=== PATIENT | male | born 1975 | race Caucasian/White ===

== ENCOUNTER → 2016-04-30 | Emergency (ER) | payer MEDICARE ==
[~2016-04-30] VITALS: Ht 170.2 cm; Wt 115.7 kg
[~2016-04-30] MED LIST: GABA-279 PO; LITH300C PO; MELO15TA4 PO; MORP-38 PO; MORP15TASA PO; NS 1,000 ML IV ONE; PANT40TA2 PO; TOPA100T8 PO; no home medications
[2016-04-30 23:47] LABS: BASO % 0.6 % (0.0-1.0); EOS # 0.2 K/mm3 (0.0-0.50); LARGE UNSTAINED CELL # 0.2 K/mm3 (0.0-0.4); LYMPH # 2.4 K/mm3 (1.5-4.5); LYMPH % 26.6 % (24.0-44.0); MEAN CORPUSCULAR HGB CONC 33.7 g/dl (32.0-36.5); MEAN CORPUSCULAR VOLUME 89.2 fl (80.0-96.0); MONO # 0.5 K/mm3 (0.0-0.8); NEUTROPHILS # 5.2 K/mm3 (1.8-7.7); NEUTROPHILS % 62.8 % (36.0-66.0); PLATELET COUNT, AUTOMATED 199 k/mm3 (150-450); RED CELL DISTRIBUTION WIDTH 12.4 % (11.5-14.5); WHITE BLOOD COUNT 8.3 K/mm3 (4.0-10.0)
[2016-05-01 00:30] VITALS: BP 134/69
[2016-05-01 00:41] LABS: ALBUMIN/GLOBULIN RATIO 1.25 (1.00-1.93); ALKALINE PHOSPHATASE 104 U/L (45-117); ALT/SGPT 51 U/L (12-78); ANION GAP 11 MEQ/L (8-16); AST/SGOT 32 U/L (15-37); BILIRUBIN,DIRECT 0.2 MG/DL (0.0-0.2); BILIRUBIN,TOTAL 0.7 MG/DL (0.2-1.0); BLOOD UREA NITROGEN 15 MG/DL (7-18); CALCIUM LEVEL 8.8 MG/DL (8.5-10.1); CARBON DIOXIDE LEVEL 24 MEQ/L (21-32); CHLORIDE LEVEL 105 MEQ/L (98-107); CREATININE FOR GFR 0.88 MG/DL (0.70-1.30); GLOMERULAR FILTRATION RATE > 60.0 (>60); GLUCOSE, FASTING 99 MG/DL (70-105); POTASSIUM SERUM 3.6 MEQ/L (3.5-5.1); SODIUM LEVEL 140 MEQ/L (136-145); TOTAL PROTEIN 7.2 GM/DL (6.4-8.2)
--- NOTE | 2016-05-01 20:26 | ECGEPIP ---
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
== END | disposition home or self-care (01) ==
LOC: M ED 23:51
DX: F32.9 Major depressive disorder, single episode, unspecified (principal); M54.9 Dorsalgia, unspecified; M79.606 Pain in leg, unspecified; F17.200 Nicotine dependence, unspecified, uncomplicated; Z79.899 Other long term (current) drug therapy; Z79.891 Long term (current) use of opiate analgesic; Z88.8 Allergy status to other drugs, medicaments and biological substances; Z91.5 Personal history of self-harm

== ENCOUNTER 2016-05-02 00:33 | Inpatient (IN) | payer MEDICARE ==
[~2016-05-02] VITALS: Ht 170.2 cm; Wt 114.8 kg
[2016-05-02] VITALS (10 sets, daily range): BP systolic 108–174; BP diastolic 52–74
[~2016-05-02 00:33] MED LIST changes: -GABA-279 PO; -MORP15TASA PO; -NS 1,000 ML IV ONE; -PANT40TA2 PO
[2016-05-02] MEDS ORDERED: NALOXONE INJ 2 MG/2 ML SYRINGE (J2310) As Ordered ONE (00:41)
[2016-05-02] MEDS ORDERED: NALOXONE INJ 2 MG/2 ML SYRINGE (J2310) IV ONE (00:45)
[2016-05-02] MEDS ORDERED: ONDANSETRON 4MG/2ML VIAL (J2405) IV ONE (01:00)
[2016-05-02 01:26] LABS: BASO % 0.6 % (0.0-1.0); EOS # 0.1 K/mm3 (0.0-0.50); EOS % 1.4 % (0.0-3.0); LARGE UNSTAINED CELL # 0.4 K/mm3 (0.0-0.4); LARGE UNSTAINED CELL % 4.3 % (0.0-4.0); LYMPH # 2.9 K/mm3 (1.5-4.5); MEAN CORPUSCULAR HEMOGLOBIN 29.8 pg (27.0-33.0); MEAN CORPUSCULAR HGB CONC 34.4 g/dl (32.0-36.5); MEAN CORPUSCULAR VOLUME 86.7 fl (80.0-96.0); MONO # 0.5 K/mm3 (0.0-0.8); MONO % 6.2 % (0.0-5.0); NEUTROPHILS # 4.8 K/mm3 (1.8-7.7); NEUTROPHILS % 54.6 % (36.0-66.0); PLATELET COUNT, AUTOMATED 215 k/mm3 (150-450); RED CELL DISTRIBUTION WIDTH 12.1 % (11.5-14.5); WHITE BLOOD COUNT 8.8 K/mm3 (4.0-10.0)
[2016-05-02 01:35] LABS: ALBUMIN 3.7 GM/DL (3.2-5.2); ALBUMIN/GLOBULIN RATIO 1.37 (1.00-1.93); ALKALINE PHOSPHATASE 98 U/L (45-117); ALT/SGPT 48 U/L (12-78); ANION GAP 12 MEQ/L (8-16); AST/SGOT 25 U/L (15-37); BILIRUBIN,DIRECT 0.2 MG/DL (0.0-0.2); BILIRUBIN,TOTAL 0.6 MG/DL (0.2-1.0); BLOOD UREA NITROGEN 19 MG/DL (7-18); CARBON DIOXIDE LEVEL 25 MEQ/L (21-32); CHLORIDE LEVEL 105 MEQ/L (98-107); CREATININE FOR GFR 0.99 MG/DL (0.70-1.30); GLOMERULAR FILTRATION RATE > 60.0 (>60); GLUCOSE, FASTING 168 MG/DL (70-105); POTASSIUM SERUM 3.8 MEQ/L (3.5-5.1); SODIUM LEVEL 142 MEQ/L (136-145); TOTAL PROTEIN 6.4 GM/DL (6.4-8.2)
[2016-05-02 01:41] LABS: LITHIUM LEVEL 0.23 MEQ/L (0.60-1.20)
[2016-05-02] MEDS ORDERED: ACETYLCYSTEINE 0 MG in D5W 500 ML IV ONE (02:00)
[2016-05-02] MEDS ORDERED: ACETYLCYSTEINE 0 MG in D5W 250 ML IV ONE (02:00)
[2016-05-02] MEDS ORDERED: NS 1,000 ML IV ONE (02:00)
[2016-05-02] MEDS ORDERED: D5W IV ONE ×3 (02:15→07:45)
[2016-05-02] MEDS ORDERED: ACETYLCYSTEINE IV ONE ×3 (02:15→07:45)
[2016-05-02] MEDS ORDERED: TETANUS/DIPHTHERIA TOX ADSORB ADULT 0.5ML SYR/VIAL (90714) IM ONE (02:45)
[2016-05-02] MEDS ORDERED: LIDOCAINE W/EPINEPHRINE 1% 20ML VIAL As Ordered ONE (03:14)
[2016-05-02] MEDS ORDERED: POLYSPORIN TOPICAL OINTMENT 15GM As Ordered ONE (03:23)
--- NOTE | 2016-05-02 03:26 | ED PDOC ---
Provider Note 6 cm lac repair, superficial. L forearm Irrigated by tech. 2 ml lido with epi injected. 11 giacomo placed. Patient tolerated procedure well SVEN CARDENAS MD May 02, 2016 03:26
--- NOTE | 2016-05-02 03:47 | HPEPDOC ---
General Date of Admission 05/02/2016 Attending Physician: ALEXA MENDOZA MD Chief Complaint The patient is a 40-year-old male admitted with a reason for visit of Overdose. Source: Patient, RN notes reviewed, Old records Exam Limitations: Clinical conditions Timing/Duration: 24 hours Severity: Moderate Associated Symptoms: Chest Pain (sharp), Headaches, Nausea History of Present Illness Mr. Ro is a 40-year-old male who presents to [facility]'s emergency Department with Tylenol overdose. Past medical history is significant for bipolar disorder, chronic back pain, chronic leg pain. Patient informs me that he took too much Tylenol secondary to not being able to "see his girls". Patient complains of a headache and he secondary to Tylenol overdose as well as some sharp chest pain that he says feels like "he was hit with something". Patient is alert and oriented 3. Patient does complain of nausea without vomiting. Also complains of orthopnea. A subcutaneous laceration approximately 4-5 inches in length noted on the right forearm with surrounding minor lacerations is present. Otherwise review of systems is negative. Patient was found obtunded in the field and was given Narcan. Patient somewhat improved after administration of Narcan indicating possible opioid intoxication. Hospitalist was consulted and patient will be admitted to the hospital for further medical management. Home Medications Scheduled [place] Carbonate (K[place] Carbonate) 300 Mg Cap 300 MG PO BID (Reported) Meloxicam (Meloxicam) 15 Mg Tab 15 MG PO DAILY (Reported) Morphine Sulfate (Morphine Sulfate ER) 15 Mg Tab 15 MG PO TID (Reported) Allergies Coded Allergies: Meperidine (Verified Allergy, Unknown, 05/27/12) Topiramate (Unverified Adverse Reaction, Intermediate, SHAKY, 05/02/16) Past Medical History Medical History 1. Bipolar disorder 2. Chronic back pain 3. Chronic leg pain Family History Significant Family History: Cancer (mother, lung cancer) Social History * Smoker: current smoker (1 PPD for approximately 25 years) Drugs: denies Recent Travel/Sick Contacts: Denies: Recent sick contacts, Recent travel Psychosocial History: Bipolar Lives independently with daughter Receives SSD Has a dog in the home Denies travel Review of Symptoms Constitutional: Denies: Chills, Fever, Night Sweats Eyes: Denies: Vision change ENT: Reports: Head Aches, Denies: Sore Throat Skin: Denies: Lesions, Rash Pulmonary: Denies: Cough Cardiovascular: Reports: Chest Pain, Orthopnea, Denies: Edema, Palpitations Gastrointestinal: Reports: Nausea, Denies: Abdominal Pain, Constipation, Diarrhea, Hematochezia, Melena, Vomiting Genitourinary: Denies: Dysuria, Frequency, Hematuria, Incontinence Hematologic: Denies: Bruising Musculoskeletal: Reports: Back Pain, Leg Pain Neurological: Denies: Numbness, Weakness Physical Examination General Exam: Positive: Cooperative, Other (sleeply, but arousable by voice) Eye Exam: Positive: Conjunctiva & lids normal, EOMI, Other Eye Symptoms (mild scleral injection, bilaterally), PERRLA ENT Exam: Positive: Atraumatic, Mucous membr. moist/pink, Tongue Midline Neck Exam: Positive: Supple, Negative: JVD, Lymphadenopathy, thyromegaly Chest Exam: Positive: Clear to auscultation, Normal air movement Heart Exam: Positive: Rate Normal, Regular Rhythm Telemetry: Positive: No significant arrhythmia Abdomen Exam: Positive: Normal bowel sounds, Soft, Negative: Hepatospenomegaly, Tenderness Extremity Exam: Positive: Normal pulses, Other (laceration approximately 45 inches in length on right forearm with minor lacerations present), Negative: Clubbing, Cyanosis Skin Exam: Positive: Lesion, Negative: Rash Neuro Exam: Negative: Strength at 5/5 X4 ext (4/5 muscle strength in lower extremities bilaterally) Psych Exam: Positive: Oriented x 3 Vital Signs T 98.3 HR 81 RR 18 BP 159/78 O2 97% on room air Height (in): 67 Weight (kg): 117.027 BMI (kg): 40.4 Laboratory Data Labs 24H Laboratory Tests 2 05/02/16 00:56: Acetaminophen Level 268.3H, Aspartate Amino Transf (AST/SGOT) 25, Alanine Aminotransferase (ALT/SGPT) 48, Alkaline Phosphatase 98, Total Bilirubin 0.6, Direct Bilirubin 0.2, Albumin 3.7, Albumin/Globulin Ratio 1.37, Anion Gap 12, White Blood Count 8.8, Red Blood Count 4.86, Hemoglobin 14.5, Hematocrit 42.2, Mean Corpuscular Volume 86.7, Mean Corpuscular Hemoglobin 29.8, Mean Corpuscular Hemoglobin Concent 34.4, Red Cell Distribution Width 12.1, Platelet Count 215, Neutrophils (%) (Auto) 54.6, Lymphocytes (%) (Auto) 33.0, Monocytes ( %) (Auto) 6.2H, Eosinophils (%) (Auto) 1.4, Basophils (%) (Auto) 0.6, Neutrophils # (Auto) 4.8, Lymphocytes # (Auto) 2.9, Monocytes # (Auto) 0.5, Eosinophils # (Auto) 0.1, Basophils # (Auto) 0.0, Calcium Level 8.0L, Ethyl Alcohol Level < 0.003, Glomerular Filtration Rate > 60.0, Large Unclassified Cells # 0.4, Large Unclassified Cells % 4.3H, [place] Level 0.23L, Salicylates Level 5.0, Thyroid Stimulating Hormone (TSH) 1.060, Total Creatine Kinase 254, Total Protein 6.4 05/02/16 01:45: Bedside Glucose (Misc Panel) 198H CBC/BMP Laboratory Tests 05/02/16 00:56 Red Blood Count 4.86, Mean Corpuscular Volume 86.7, Mean Corpuscular Hemoglobin 29.8, Mean Corpuscular Hemoglobin Concent 34.4, Red Cell Distribution Width 12.1 , Neutrophils (%) (Auto) 54.6, Lymphocytes (%) (Auto) 33.0, Monocytes (%) (Auto ) 6.2 H, Eosinophils (%) (Auto) 1.4, Basophils (%) (Auto) 0.6, Neutrophils # ( Auto) 4.8, Lymphocytes # (Auto) 2.9, Monocytes # (Auto) 0.5, Eosinophils # (Auto ) 0.1, Basophils # (Auto) 0.0 Assessment/Plan 40-year-old male who presents with Tylenol overdose. Problems (1) Tylenol overdose Status: Acute Problem Text: Place a one-to-one sitter secondary to patient's suicidal ideation and attempt Discussed patient's case with poison control and and following their recommendations which are outlined below - 2 hours before (2137) completion of 16 hour Mucomyst administration obtain a Tylenol level, coags, and LFTs - Obtain lithium level at 6 AM and if elevated continue with serial lithium levels every 4-6 hours Will make patient nothing by mouth at this time until patient returns to baseline and there is no longer a concern for aspiration Will make patient bedrest with commode privileges until return to baseline (2) Self-inflicted injury Status: Acute Problem Text: Approximately 4-6 inch subcutaneous laceration sustained to right forearm proximal to antecubital region with surrounding superficial lacerations Repaired in emergency department with giacomo Tetanus vaccination administered in emergency department Monitor with daily labs and vital signs Clinically monitor for signs of infection, including but not limited to erythema , edema, necrosis (3) Chronic back pain Status: Chronic Problem Text: Have continued patient's home medication of meloxicam Will hold patient's morphine at this time as patient was found obtunded in the field and was subsequently given Narcan to which patient responded, so likely an underlying opioid intoxication Plan / VTE VTE Prophylaxis Ordered?: Yes (TEDs and sequentials) Plan Plan Tylenol overdose - Discussed with poison control and I am following their recommendations laid out as follows: [place] level at 6 AM and if elevated to continue with serial lithium levels every 4-6 hours, 2 hours before (9:38 PM) step 3 of IV acetylcysteine (16 hour) administration obtain a Tylenol level, coags, and LFTs - Place a one-to-one sitter for suicidal ideation Chronic pain - Due to patient's response to Narcan there is likely a component of opioid intoxication and for this reason patient's morphine will be held - Will continue patient's meloxicam DVT prophylaxis - Place TEDs and sequentials Disposition Admit to PCU Activity: Continue Current Diagnostics: Check Labs, Repeat Labs in AM Anticipated Discharge: Home JOSEPHINE MONDRAGON May 02, 2016 03:33
[2016-05-02 07:23] LABS: ALBUMIN 3.2 GM/DL (3.2-5.2); ALBUMIN/GLOBULIN RATIO 1.23 (1.00-1.93); ALKALINE PHOSPHATASE 81 U/L (45-117); ALT/SGPT 60 U/L (12-78); ANION GAP 14 MEQ/L (8-16); AST/SGOT 37 U/L (15-37); BILIRUBIN,TOTAL 0.8 MG/DL (0.2-1.0); BLOOD UREA NITROGEN 17 MG/DL (7-18); CALCIUM LEVEL 7.8 MG/DL (8.5-10.1); CARBON DIOXIDE LEVEL 24 MEQ/L (21-32); CHLORIDE LEVEL 105 MEQ/L (98-107); CREATININE FOR GFR 0.88 MG/DL (0.70-1.30); GLOMERULAR FILTRATION RATE > 60.0 (>60); GLUCOSE, FASTING 159 MG/DL (70-105); POTASSIUM SERUM 3.4 MEQ/L (3.5-5.1); SODIUM LEVEL 143 MEQ/L (136-145); TOTAL PROTEIN 5.8 GM/DL (6.4-8.2)
[2016-05-02 07:28] LABS: LITHIUM LEVEL < 0.20 MEQ/L (0.60-1.20)
[2016-05-02] MEDS ORDERED: METOCLOPRAMIDE INJ 10MG/2ML VIAL (J2765) IV PRN (08:11)
[2016-05-02] MEDS ORDERED: NALOXONE INJ 0.4 MG/1 ML VIAL (J2310) IV PRN ×2 (08:11)
[2016-05-02] MEDS ORDERED: NALBUPHINE HCL 10 MG/ML AMP (J2300) IV PRN (08:11)
[2016-05-02] MEDS ORDERED: ONDANSETRON 4MG/2ML VIAL (J2405) IV PRN (08:11)
[2016-05-02] MEDS: ONDANSETRON 4MG/2ML VIAL (J2405) IV PRN ×2 (08:11→20:57)
[2016-05-02] MEDS ORDERED: MELOXICAM (MOBIC) 7.5 MG TAB PO SCH (09:00)
[2016-05-02] MEDS: GABAPENTIN 100 MG CAP PO SCH ×3 (09:54→20:04)
[2016-05-02] MEDS: LIDOCAINE 5% (LIDODERM) PATCH TD SCH (09:54)
[2016-05-02] MEDS: PANTOPRAZOLE 40MG TAB (PROTONIX) PO SCH (16:39)
[2016-05-02] MEDS ORDERED: **NOTE PATIENT COMMENT** MISC XX SCH (21:00)
[2016-05-02 22:06] LABS: ALBUMIN 3.2 GM/DL (3.2-5.2); ALBUMIN/GLOBULIN RATIO 1.28 (1.00-1.93); ALKALINE PHOSPHATASE 85 U/L (45-117); ALT/SGPT 69 U/L (12-78); ANION GAP 10 MEQ/L (8-16); AST/SGOT 32 U/L (15-37); BILIRUBIN,TOTAL 0.5 MG/DL (0.2-1.0); BLOOD UREA NITROGEN 14 MG/DL (7-18); CALCIUM LEVEL 7.8 MG/DL (8.5-10.1); CARBON DIOXIDE LEVEL 24 MEQ/L (21-32); CHLORIDE LEVEL 106 MEQ/L (98-107); CREATININE FOR GFR 0.82 MG/DL (0.70-1.30); GLOMERULAR FILTRATION RATE > 60.0 (>60); GLUCOSE, FASTING 111 MG/DL (70-105); POTASSIUM SERUM 3.4 MEQ/L (3.5-5.1); SODIUM LEVEL 140 MEQ/L (136-145); TOTAL PROTEIN 5.7 GM/DL (6.4-8.2)
[2016-05-02 22:29] LABS: INR 1.27
[2016-05-03] VITALS (7 sets, daily range): BP systolic 118–145; BP diastolic 59–82
[2016-05-03] MEDS ORDERED: D5W IV ONE (01:30)
[2016-05-03] MEDS ORDERED: ACETYLCYSTEINE IV ONE (01:30)
[2016-05-03 05:13] LABS: MEAN CORPUSCULAR HEMOGLOBIN 29.4 pg (27.0-33.0); MEAN CORPUSCULAR HGB CONC 33.8 g/dl (32.0-36.5); MEAN CORPUSCULAR VOLUME 87.2 fl (80.0-96.0); RED CELL DISTRIBUTION WIDTH 12.4 % (11.5-14.5); WHITE BLOOD COUNT 9.1 K/mm3 (4.0-10.0)
[2016-05-03 05:43] LABS: ALBUMIN/GLOBULIN RATIO 1.03 (1.00-1.93); ALKALINE PHOSPHATASE 86 U/L (45-117); ALT/SGPT 71 U/L (12-78); ANION GAP 10 MEQ/L (8-16); AST/SGOT 30 U/L (15-37); BILIRUBIN,TOTAL 0.6 MG/DL (0.2-1.0); BLOOD UREA NITROGEN 13 MG/DL (7-18); CALCIUM LEVEL 7.9 MG/DL (8.5-10.1); CARBON DIOXIDE LEVEL 24 MEQ/L (21-32); CHLORIDE LEVEL 107 MEQ/L (98-107); CREATININE FOR GFR 0.78 MG/DL (0.70-1.30); GLOMERULAR FILTRATION RATE > 60.0 (>60); GLUCOSE, FASTING 107 MG/DL (70-105); POTASSIUM SERUM 3.5 MEQ/L (3.5-5.1); SODIUM LEVEL 141 MEQ/L (136-145); TOTAL PROTEIN 5.9 GM/DL (6.4-8.2)
[2016-05-03] MEDS: GABAPENTIN 100 MG CAP PO SCH (08:33)
[2016-05-03] MEDS: LIDOCAINE 5% (LIDODERM) PATCH TD SCH (08:33)
[2016-05-03] MEDS: PANTOPRAZOLE 40MG TAB (PROTONIX) PO SCH (08:33)
--- NOTE | 2016-05-03 08:57 | ECGEPIP ---
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
[2016-05-03] MEDS ORDERED: MORPHINE 15 MG SA TAB PO SCH ×2 (09:00→14:00)
[2016-05-03] MEDS ORDERED: KETOROLAC 30 MG/ML VIAL (J1885) IV PRN (09:00)
--- NOTE | 2016-05-03 12:47 | IPNPDOC ---
Subjective Date Seen The patient was seen on 05/03/16. Subjective Chief Complaint/HPI The patient is a 40-year-old male admitted with a reason for visit of Acetaminophen Overdose. Events since last encounter complains of back pain with radiation down right leg. has cut himself multiple times has giacomo on the right forearm. Objective Physical Examination General Exam: Positive: Cooperative, Other (sleeply, but arousable by voice) Eye Exam: Positive: Conjunctiva & lids normal, EOMI, Other Eye Symptoms (mild scleral injection, bilaterally), PERRLA ENT Exam: Positive: Atraumatic, Mucous membr. moist/pink, Tongue Midline Neck Exam: Positive: Supple, Negative: JVD, Lymphadenopathy, thyromegaly Chest Exam: Positive: Clear to auscultation, Normal air movement Heart Exam: Positive: Rate Normal, Regular Rhythm Telemetry: Positive: No significant arrhythmia Abdomen Exam: Positive: Normal bowel sounds, Soft, Negative: Hepatospenomegaly, Tenderness Extremity Exam: Positive: Normal pulses, Other (laceration approximately 45 inches in length on right forearm with minor lacerations present), Negative: Clubbing, Cyanosis Skin Exam: Positive: Lesion, Negative: Rash Neuro Exam: Negative: Strength at 5/5 X4 ext (4/5 muscle strength in lower extremities bilaterally) Psych Exam: Positive: Oriented x 3 Assessment /Plan Problems (1) Tylenol overdose Status: Acute Problem Text: Place a one-to-one sitter secondary to patient's suicidal ideation and attempt Discussed patient's case with poison control and and following their recommendations which are outlined below finished 28 hours of n acetyl cysteine last tylenol level at 6.0 , no LFT elevation and inr normal so stopped. Psych consulted. (2) Self-inflicted injury Status: Acute Problem Text: Approximately 4-6 inch subcutaneous laceration sustained to right forearm proximal to antecubital region with surrounding superficial lacerations Repaired in emergency department with giacomo Tetanus vaccination administered in emergency department Monitor with daily labs and vital signs Clinically monitor for signs of infection, including but not limited to erythema , edema, necrosis patient is a cutter has been cutting himself since the age of 10 years. (3) Chronic back pain Status: Chronic Problem Text: with radiculopathy Have continued patient's home medication of meloxicam and restart MS contin. will give it BID instead of tid. (4) Bipolar disorder Status: Chronic Problem Text: had taken overdose of lithium also so lithium is now on hold. Psych consulted (5) Depression Status: Chronic Plan/VTE VTE Prophylaxis Ordered?: Yes (TEDs and sequentials) Plan Activity: Continue Current Diagnostics: Check Labs, Repeat Labs in AM Anticipated Discharge: Home VS, I&O, 24H, Fishbone Vital Signs/I&O Vital Signs Date Time Temp Pulse Resp B/P Pulse Ox O2 Delivery O2 Flow Rate FiO2 05/03/16 12:00 97.7 54 18 126/65 95 Room Air I&O- Last 24 Hours up to 6 AM 05/03/16 06:00 Intake Total 2796 ml Output Total 850 ml Balance 1946 ml Laboratory Data 24H LABS Laboratory Tests 2 05/02/16 21:30: Acetaminophen Level 19.5, Blood Urea Nitrogen 14, Creatinine 0.82, Sodium Level 140, Potassium Level 3.4L, Chloride Level 106, Carbon Dioxide Level 24, Calcium Level 7.8L, Aspartate Amino Transf (AST/SGOT) 32, Alanine Aminotransferase (ALT/ SGPT) 69, Alkaline Phosphatase 85, Total Bilirubin 0.5, Total Protein 5.7L, Albumin 3.2, Albumin/Globulin Ratio 1.28, Anion Gap 10, Glomerular Filtration Rate > 60.0, Prothromb Time International Ratio 1.27, Prothrombin Time 16.0H 05/03/16 00:30: Acetaminophen Level 12.3 05/03/16 04:50: Blood Urea Nitrogen 13, Creatinine 0.78, Sodium Level 141, Potassium Level 3.5, Chloride Level 107, Carbon Dioxide Level 24, Calcium Level 7.9L, Aspartate Amino Transf (AST/SGOT) 30, Alanine Aminotransferase (ALT/SGPT) 71, Alkaline Phosphatase 86, Total Bilirubin 0.6, Total Protein 5.9L, Albumin 3.0L, Albumin/ Globulin Ratio 1.03, Anion Gap 10, Glomerular Filtration Rate > 60.0 05/03/16 09:11: Acetaminophen Level 6.4L CBC/BMP Laboratory Tests 05/02/16 21:30 Calcium Level 7.8 L, Aspartate Amino Transf (AST/SGOT) 32, Alanine Aminotransferase (ALT/SGPT) 69, Alkaline Phosphatase 85, Total Bilirubin 0.5, Total Protein 5.7 L, Albumin 3.2 05/03/16 04:50 Calcium Level 7.9 L, Aspartate Amino Transf (AST/SGOT) 30, Alanine Aminotransferase (ALT/SGPT) 71, Alkaline Phosphatase 86, Total Bilirubin 0.6, Total Protein 5.9 L, Albumin 3.0 L, Red Blood Count 4.62, Mean Corpuscular Volume 87.2, Mean Corpuscular Hemoglobin 29.4, Mean Corpuscular Hemoglobin Concent 33.8, Red Cell Distribution Width 12.4 ECTOR OTT MD May 03, 2016 12:46
[2016-05-03 15:26] LABS: INR 1.11
[2016-05-03 15:38] LABS: ALBUMIN 3.4 GM/DL (3.2-5.2); ALBUMIN/GLOBULIN RATIO 1.13 (1.00-1.93); ALKALINE PHOSPHATASE 89 U/L (45-117); ALT/SGPT 77 U/L (12-78); ANION GAP 8 MEQ/L (8-16); AST/SGOT 31 U/L (15-37); BILIRUBIN,TOTAL 0.4 MG/DL (0.2-1.0); BLOOD UREA NITROGEN 11 MG/DL (7-18); CALCIUM LEVEL 8.6 MG/DL (8.5-10.1); CARBON DIOXIDE LEVEL 25 MEQ/L (21-32); CHLORIDE LEVEL 107 MEQ/L (98-107); CREATININE FOR GFR 0.85 MG/DL (0.70-1.30); GLOMERULAR FILTRATION RATE > 60.0 (>60); GLUCOSE, FASTING 107 MG/DL (70-105); POTASSIUM SERUM 3.5 MEQ/L (3.5-5.1); SODIUM LEVEL 140 MEQ/L (136-145); TOTAL PROTEIN 6.4 GM/DL (6.4-8.2)
[2016-05-03] MEDS ORDERED: GABAPENTIN 100 MG CAP PO SCH (16:00)
[2016-05-03] MEDS ORDERED: GABA-279 PO (18:36)
[2016-05-03] MEDS ORDERED: MORP15TASA PO (18:36)
[2016-05-03] MEDS ORDERED: PANT40TA2 PO (18:36)
[2016-05-04] MEDS ORDERED: MELOXICAM (MOBIC) 7.5 MG TAB PO SCH (09:00)
--- NOTE | 2016-05-05 15:05 | DSES ---
DATE OF ADMISSION: 05/02/2016 DATE OF DISCHARGE: 05/03/2016 PRIMARY CARE PROVIDER: DAMON Lisa, at [facility] DISCHARGE DIAGNOSES: 1. Suicidal attempt by acetaminophen overdose. 2. Self-cutting on the forearm. 3. Chronic back pain with radiculopathy. 4. Bipolar disorder. 5. Depression. DISCHARGE MEDICATIONS: - gabapentin 200 three times a day - morphine sulfate 15 mg by mouth every 12 hours - pantoprazole 40 mg daily - lithium 300 mg by mouth twice a day - meloxicam 15 mg by mouth daily HOSPITAL COURSE: This is a 40-year-old male with a history of bipolar disorder, depression, history of self-cutting since the age of 10 years, presented to the hospital after a suicidal attempt by Tylenol overdose. He was found to be obtunded in the field, and he was given Narcan with some mild response. He is on chronic MS Contin 15 mg three times a day for his chronic back pain and radiculopathy. In the emergency department (ED), he was found to have a Tylenol level of 238 and was started on N-acetylcysteine. He was also noted to have several subcutaneous lacerations on his right forearm. One of them required several giacomo. The patient was admitted in intensive care unit (ICU). The patient finished 21 hours of N-acetylcysteine. After that, Tylenol level check was still at 12, so N-acetylcysteine was continued. Repeat of Tylenol level after 12 hours showed it was down to 8; and subsequently, N-acetylcysteine was stopped. Psychiatry was consulted and have accepted him for inpatient mental health unit; so, the patient was transferred to inpatient mental health unit. On the day of transfer, the patient's vital signs were stable. Symptoms were controlled. PHYSICAL EXAMINATION: Vital signs: Temperature 97, pulse 61, respiratory rate 18, blood pressure 128/72, pulse oximetry 96% in room air. General: The patient awake, alert, oriented times three, sitting up in chair, in no acute distress. HEENT: Normocephalic, atraumatic. Moist mucous membranes. Anicteric eyes. Chest: Clear to auscultation. Cardiovascular: S1, S2, regular. No rub, murmur, or gallop. Abdomen: Soft, obese, nontender. Bowel sounds present. Extremities: No edema. LABORATORY DATA: WBC 9.1, hemoglobin 13.6, platelet 196. Sodium 140, potassium 3.5, chloride 107, bicarbonate 25, BUN 11, creatinine 0.8, glucose 107. Liver function tests are normal. INR 1.1. Tylenol level 6.4. Urinalysis (UA) negative. DISPOSITION: The patient is discharged to inpatient mental health unit. DISCHARGE INSTRUCTIONS: The patient to followup with primary care provider once the patient discharged from there. Regular diet. Activity as tolerated.
== END 2016-05-03 19:32 | DRG 918 ==
LOC: EDBD 00:33 → M ED 01:28 → M ED INP 05:07 → M ICU 06:51 → M MSPAV 05-03 12:47
PROVIDERS: ADMIT Internal Medicine; ATTEND Internal Medicine Nephrology
DX: T39.1X2A Poisoning by 4-Aminophenol derivatives, intentional self-harm, initial encounter (principal); R45.851 Suicidal ideations; S41.111A Laceration without foreign body of right upper arm, initial encounter; G89.29 Other chronic pain; F11.129 Opioid abuse with intoxication, unspecified; F17.210 Nicotine dependence, cigarettes, uncomplicated; F31.9 Bipolar disorder, unspecified; M54.10 Radiculopathy, site unspecified; Z88.8 Allergy status to other drugs, medicaments and biological substances; Z79.899 Other long term (current) drug therapy; Z91.5 Personal history of self-harm; Z80.2 Family history of malignant neoplasm of other respiratory and intrathoracic organs; Y92.019 Unspecified place in single-family (private) house as the place of occurrence of the external cause; X78.9XXA Intentional self-harm by unspecified sharp object, initial encounter; Y99.9 Unspecified external cause status; Y93.9 Activity, unspecified; M79.606 Pain in leg, unspecified; F17.200 Nicotine dependence, unspecified, uncomplicated; Z79.891 Long term (current) use of opiate analgesic

== ENCOUNTER 2016-05-03 19:35 | Inpatient (IN) | payer MEDICARE ==
[~2016-05-03] VITALS: Ht 170.2 cm; Wt 115.3 kg
[~2016-05-03 19:35] MED LIST changes: +GABA-279 PO; +MORP15TASA PO; +PANT40TA2 PO
[2016-05-03] MEDS: MORPHINE 15 MG SA TAB PO PRN (21:29)
[2016-05-03] MEDS ORDERED: ACETAMINOPHEN TAB 650MG DOSE (2X325MG) PO PRN (21:30)
[2016-05-03] MEDS ORDERED: traZODone 50 MG TAB PO PRN (21:30)
[2016-05-03] MEDS ORDERED: MOM 30ML SUSPENSION UDC PO PRN (21:30)
[2016-05-03] MEDS ORDERED: MAALOX 30 ML SUSP *UDC PO PRN (21:30)
[2016-05-03] MEDS: GABAPENTIN 100 MG CAP PO SCH (21:30)
[2016-05-04 01:51] VITALS: BP 141/86
[2016-05-04] MEDS: MORPHINE 15 MG SA TAB PO PRN ×3 (06:32→22:26)
[2016-05-04 06:48] VITALS: BP 117/71
[2016-05-04] MEDS: GABAPENTIN 100 MG CAP PO SCH ×3 (08:34→21:04)
[2016-05-04] MEDS: MELOXICAM (MOBIC) 7.5 MG TAB PO SCH (08:34)
[2016-05-04] MEDS: LITHIUM CARBONATE 300 MG CAP PO SCH ×2 (08:34→21:05)
[2016-05-04] MEDS: PANTOPRAZOLE 40MG TAB (PROTONIX) PO SCH (08:34)
[2016-05-04] MEDS: NICOTINE POLACRILEX 2 MG GUM PO PRN ×2 (13:52→19:32)
[2016-05-04 18:00] VITALS: BP 121/68
[2016-05-05] MEDS: MORPHINE 15 MG SA TAB PO PRN ×3 (06:25→22:39)
[2016-05-05] MEDS: NICOTINE POLACRILEX 2 MG GUM PO PRN ×4 (06:25→22:46)
[2016-05-05] MEDS: CEPHALEXIN 500 MG CAP PO SCH ×3 (08:20→21:08)
[2016-05-05] MEDS: GABAPENTIN 100 MG CAP PO SCH ×3 (08:20→21:07)
[2016-05-05] MEDS: MELOXICAM (MOBIC) 7.5 MG TAB PO SCH (08:20)
[2016-05-05] MEDS: LITHIUM CARBONATE 300 MG CAP PO SCH ×2 (08:20→21:08)
[2016-05-05] MEDS: PANTOPRAZOLE 40MG TAB (PROTONIX) PO SCH (08:20)
[2016-05-05 10:21] VITALS: BP 129/69
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
[2016-05-05 18:00] VITALS: BP 149/74
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
[2016-05-06] MEDS: NICOTINE POLACRILEX 2 MG GUM PO PRN ×3 (05:30→20:32)
[2016-05-06 06:35] VITALS: BP 123/66
[2016-05-06] MEDS: MORPHINE 15 MG SA TAB PO PRN ×3 (06:46→22:40)
[2016-05-06] MEDS: GABAPENTIN 100 MG CAP PO SCH ×3 (08:21→20:30)
[2016-05-06] MEDS: PANTOPRAZOLE 40MG TAB (PROTONIX) PO SCH (08:21)
[2016-05-06] MEDS: LITHIUM CARBONATE 300 MG CAP PO SCH ×2 (08:22→20:30)
[2016-05-06] MEDS: CEPHALEXIN 500 MG CAP PO SCH ×3 (08:22→20:30)
[2016-05-06] MEDS: MELOXICAM (MOBIC) 7.5 MG TAB PO SCH (08:22)
--- NOTE | 2016-05-06 12:43 | IPNPDOC ---
Subjective Date Seen The patient was seen on 05/06/16. Subjective Chief Complaint/HPI The patient is a 40-year-old male admitted with a reason for visit of Unspecified Depressive D/O. Events since last encounter Re evaluate Laceration RUE. Pt requests increased dose Nicorette gum. Smokes 2-2.5 PPD. Objective Physical Examination General Exam: Positive: Alert Eye Exam: Positive: PERRLA ENT Exam: Positive: Atraumatic Chest Exam: Positive: Clear to auscultation, Normal air movement Heart Exam: Positive: Normal S1, Normal S2, Rate Normal, Regular Rhythm, Negative: Murmurs, Rubs Skin Exam: Positive: Nl turgor and temperature, Other skin issue (decreased erythema and drainage from laceration RUE, giacomo intact. Multiple other superficial lacerations. ), Negative: Breakdown, Rash Neuro Exam: Positive: Normal Gait Assessment /Plan Problems (1) Laceration Status: Acute Problem Text: * Continue Keflex 500mg TID. * Dry dressing. * Apply Bactroban to superficial lacerations BID. * monitor. (2) Tobacco abuse Status: Chronic Problem Text: * Nicorette gum. Plan/VTE VTE Prophylaxis Ordered?: No (ambulatory. ) VS, I&O, 24H, Fishbone Vital Signs/I&O Vital Signs Date Time Temp Pulse Resp B/P Pulse Ox O2 Delivery O2 Flow Rate FiO2 05/06/16 06:46 16 05/06/16 06:35 96.3 75 123/66 Bertha Barrera May 06, 2016 12:43
[2016-05-06] MEDS: MUPIROCIN 2% CREAM 30GM TOP SCH ×2 (14:29→20:30)
[2016-05-06 18:00] VITALS: BP 136/77
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
[2016-05-07] MEDS: OXcarbazepine 300 MG TAB PO SCH ×3 (01:01→20:23)
[2016-05-07 06:00] VITALS: BP 132/63
[2016-05-07] MEDS: NICOTINE POLACRILEX 2 MG GUM PO PRN ×5 (06:42→22:44)
[2016-05-07] MEDS: MORPHINE 15 MG SA TAB PO PRN ×3 (06:44→22:43)
[2016-05-07] MEDS: MUPIROCIN 2% CREAM 30GM TOP SCH ×2 (08:07→20:24)
[2016-05-07] MEDS: LITHIUM CARBONATE 300 MG CAP PO SCH ×2 (08:07→20:23)
[2016-05-07] MEDS: MELOXICAM (MOBIC) 7.5 MG TAB PO SCH (08:07)
[2016-05-07] MEDS: CEPHALEXIN 500 MG CAP PO SCH ×3 (08:07→20:24)
[2016-05-07] MEDS: PANTOPRAZOLE 40MG TAB (PROTONIX) PO SCH (08:07)
[2016-05-07] MEDS: GABAPENTIN 100 MG CAP PO SCH ×3 (08:07→20:23)
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
[2016-05-07 18:00] VITALS: BP 113/69
[2016-05-08 06:25] VITALS: BP 153/80
[2016-05-08] MEDS: MORPHINE 15 MG SA TAB PO PRN ×3 (06:39→22:40)
[2016-05-08] MEDS: GABAPENTIN 100 MG CAP PO SCH ×3 (08:44→20:20)
[2016-05-08] MEDS: MUPIROCIN 2% CREAM 30GM TOP SCH ×2 (08:44→20:21)
[2016-05-08] MEDS: LITHIUM CARBONATE 300 MG CAP PO SCH ×2 (08:44→20:20)
[2016-05-08] MEDS: PANTOPRAZOLE 40MG TAB (PROTONIX) PO SCH (08:45)
[2016-05-08] MEDS: CEPHALEXIN 500 MG CAP PO SCH ×3 (08:45→20:20)
[2016-05-08] MEDS: OXcarbazepine 300 MG TAB PO SCH ×2 (08:45→20:20)
[2016-05-08] MEDS: MELOXICAM (MOBIC) 7.5 MG TAB PO SCH (08:45)
[2016-05-08] MEDS: NICOTINE POLACRILEX 2 MG GUM PO PRN ×5 (08:48→23:14)
[2016-05-08 18:00] VITALS: BP 134/71
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
[2016-05-09] MEDS: NICOTINE POLACRILEX 2 MG GUM PO PRN ×8 (05:36→22:40)
[2016-05-09 06:24] VITALS: BP 130/69
[2016-05-09] MEDS: MORPHINE 15 MG SA TAB PO PRN ×3 (06:42→22:39)
[2016-05-09] MEDS: PANTOPRAZOLE 40MG TAB (PROTONIX) PO SCH (08:07)
[2016-05-09] MEDS: LITHIUM CARBONATE 300 MG CAP PO SCH ×3 (08:07→20:14)
[2016-05-09] MEDS: OXcarbazepine 300 MG TAB PO SCH ×2 (08:07→20:15)
[2016-05-09] MEDS: CEPHALEXIN 500 MG CAP PO SCH ×3 (08:07→20:15)
[2016-05-09] MEDS: GABAPENTIN 100 MG CAP PO SCH ×3 (08:07→20:14)
[2016-05-09] MEDS: MELOXICAM (MOBIC) 7.5 MG TAB PO SCH (08:08)
[2016-05-09] MEDS: MUPIROCIN 2% CREAM 30GM TOP SCH ×2 (08:08→20:16)
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
[2016-05-09 18:00] VITALS: BP 123/71
[2016-05-10 06:40] VITALS: BP 128/86
[2016-05-10] MEDS: MORPHINE 15 MG SA TAB PO PRN (06:40)
[2016-05-10] MEDS: LITHIUM CARBONATE 300 MG CAP PO SCH ×3 (08:18→20:18)
[2016-05-10] MEDS: PANTOPRAZOLE 40MG TAB (PROTONIX) PO SCH (08:18)
[2016-05-10] MEDS: NICOTINE POLACRILEX 2 MG GUM PO PRN ×6 (08:18→20:18)
[2016-05-10] MEDS: MELOXICAM (MOBIC) 7.5 MG TAB PO SCH (08:19)
[2016-05-10] MEDS: GABAPENTIN 100 MG CAP PO SCH ×3 (08:19→20:17)
[2016-05-10] MEDS: OXcarbazepine 300 MG TAB PO SCH ×2 (08:19→20:17)
[2016-05-10] MEDS: CEPHALEXIN 500 MG CAP PO SCH ×3 (08:19→20:17)
[2016-05-10] MEDS: MUPIROCIN 2% CREAM 30GM TOP SCH ×2 (08:21→20:18)
[2016-05-10] MEDS ORDERED: diphenhydrAMINE 50 MG CAP PO ONE (11:15)
[2016-05-10] MEDS ORDERED: HALOPERIDOL 5 MG TAB PO ONE (11:15)
[2016-05-10] MEDS ORDERED: LORazepam 2 MG TAB PO ONE (11:15)
[2016-05-10] MEDS: MORPHINE 15 MG SA TAB PO SCH ×2 (13:53→22:09)
[2016-05-10 18:00] VITALS: BP 134/94
[2016-05-11] MEDS: NICOTINE POLACRILEX 2 MG GUM PO PRN ×6 (05:13→22:19)
[2016-05-11] MEDS: MORPHINE 15 MG SA TAB PO SCH ×3 (06:05→22:17)
[2016-05-11 06:45] VITALS: BP 148/99
[2016-05-11] MEDS: PANTOPRAZOLE 40MG TAB (PROTONIX) PO SCH (08:35)
[2016-05-11] MEDS: OXcarbazepine 300 MG TAB PO SCH ×2 (08:35→20:05)
[2016-05-11] MEDS: GABAPENTIN 100 MG CAP PO SCH ×3 (08:35→20:05)
[2016-05-11] MEDS: CEPHALEXIN 500 MG CAP PO SCH ×3 (08:35→20:05)
[2016-05-11] MEDS: MUPIROCIN 2% CREAM 30GM TOP SCH ×2 (08:36→20:06)
[2016-05-11] MEDS: MELOXICAM (MOBIC) 7.5 MG TAB PO SCH (08:36)
[2016-05-11] MEDS: LITHIUM CARBONATE 300 MG CAP PO SCH ×3 (09:15→20:05)
[2016-05-11] MEDS ORDERED: HALOPERIDOL 5 MG/ML VIAL (J1630) IM PRN (10:15)
[2016-05-11] MEDS ORDERED: diphenhydrAMINE INJ 50MG/ML VIAL (J1200) IM PRN (10:15)
[2016-05-11] MEDS: LORazepam 2 MG TAB PO PRN ×3 (10:21→18:42)
[2016-05-11] MEDS ORDERED: HALOPERIDOL 5 MG TAB PO PRN (13:15)
[2016-05-11] MEDS ORDERED: diphenhydrAMINE 50 MG CAP PO PRN (13:15)
--- NOTE | 2016-05-11 15:15 | IPN ---
DATE: 05/10/2016 This 40-year-old male was transferred here following a lithium overdose and self-injury of cutting his arm. He is presently on lithium 300 three times a day, Neurontin 200 three times a day, Trileptal 300 twice a day. Today, on the unit, he became angry and threatening repetitively towards another patient who he stated was stating "I am Eren." It was unclear what occurred, but apparently it was some confrontation in group. Patient appeared agitated, angry, and threatening. I met with him and with staff. Following a discussion with him, he promised that he would not attack the patient, though he made numerous threats and "promises to do so." I added an as needed Haldol, Ativan, and Benadryl and the patient agreed he would take it should he feel he was getting out of control. The other patient was placed in his own room on a one-to-one with room restriction to protect the other patient. The patient is presently denying hallucinations, delusions, obsessions, compulsions, and phobias. He is fully oriented with a full fund of information. His appearance is agitated. His eye contact was poor. His speech was of normal volume and articulation. Mood labile. His memory is intact for recent, immediate, and remote. He has no loose associations. He is denying suicidal or homicidal ideation. His judgment is poor. This patient apparently has a history of criminal behavior and was in [facility] for [facility], grand larceny, and attempted murder for over 15 years and recently, in 2013, got out of assisted. DIAGNOSES: As per Cherelle Sanchez, diagnoses of: 1. Bipolar disorder. 2. Cannabinoid use. 3. Rule out polysubstance disorder. 4. Rule out intermittent explosive disorder. MANAGEMENT AND DISCHARGE PLAN: As per Cherelle Sanchez. [facility]
[2016-05-11 18:00] VITALS: BP 144/84
--- NOTE | 2016-05-12 00:10 | IPN ---
DATE: 05/11/2016 Eren Ro spoke to me today and stated he felt he was not ready for discharge. He has had two episodes within two days of wanting to fight with other patients, the first patient he had a disagreement with over a seating, and the second patient had asked him about his treatment with women. Patient agrees that he is getting angry unnecessarily and is concerned he will have difficulties seeing his children should this continue. He does not feel the lithium is working. I renewed and reordered his as-needed medications for agitation. Patient's appearance is appropriate. He has significant cuts on his arms. Eye contact is good. Speech is normal in volume and articulation. Mood is euthymic. Affect is flat. He denies hallucinations and delusions. His memory for immediate, distant is intact. He is fully oriented. No loose associations present. He denies suicidal or homicidal ideation. His judgment is improved today. MANAGEMENT PLAN: I will not at this time increase his lithium and will refer to Cherelle Chaneyillan, as per her treatment. DIAGNOSIS: As per Ms. Duckworth 1. Bipolar disorder. 2. Cannabinoid use disorder. 3. Rule out polysubstance use disorder. 4. Rule out intermittent explosive disorder.
[2016-05-12] MEDS: NICOTINE POLACRILEX 2 MG GUM PO PRN ×6 (05:23→20:20)
[2016-05-12] MEDS: MORPHINE 15 MG SA TAB PO SCH ×3 (06:03→21:17)
[2016-05-12 06:44] VITALS: BP 133/93
[2016-05-12] MEDS: OXcarbazepine 300 MG TAB PO SCH ×2 (08:12→20:17)
[2016-05-12] MEDS: MUPIROCIN 2% CREAM 30GM TOP SCH ×2 (08:15→20:16)
[2016-05-12] MEDS: CEPHALEXIN 500 MG CAP PO SCH ×3 (08:15→20:17)
[2016-05-12] MEDS: MELOXICAM (MOBIC) 7.5 MG TAB PO SCH (08:15)
[2016-05-12] MEDS: LITHIUM CARBONATE 300 MG CAP PO SCH ×2 (08:15→20:17)
[2016-05-12] MEDS: GABAPENTIN 100 MG CAP PO SCH ×3 (08:15→20:17)
[2016-05-12] MEDS: PANTOPRAZOLE 40MG TAB (PROTONIX) PO SCH (08:15)
[2016-05-12] MEDS ORDERED: MUPI30CR TOP (09:00)
[2016-05-12] MEDS ORDERED: CEPH500C PO (09:00)
[2016-05-12] MEDS ORDERED: NICO2GUM62 PO (09:00)
[2016-05-12] MEDS: LORazepam 2 MG TAB PO PRN (10:41)
--- NOTE | 2016-05-12 11:19 | IPNPDOC ---
Subjective Date Seen The patient was seen on 05/12/16. Subjective Chief Complaint/HPI The patient is a 40-year-old male admitted with a reason for visit of Unspecified Depressive D/O. Events since last encounter Reevaluating patient's laceration right forearm. Objective Physical Examination General Exam: Positive: Alert Eye Exam: Positive: PERRLA ENT Exam: Positive: Atraumatic Chest Exam: Positive: Clear to auscultation, Normal air movement Heart Exam: Positive: Normal S1, Normal S2, Rate Normal, Regular Rhythm, Negative: Murmurs, Rubs Skin Exam: Positive: Nl turgor and temperature, Other skin issue (giacomo removed from laceration RUE, no further drainage, healing well. Multiple other superficial lacerations, healing. ), Negative: Breakdown, Rash Neuro Exam: Positive: Normal Gait Assessment /Plan Problems (1) Laceration Status: Acute Problem Text: * Continue Keflex 500mg TID- pt to finish course. * Apply Bactroban to superficial lacerations BID. * monitor. (2) Tobacco abuse Status: Chronic Problem Text: * Nicorette gum. Plan/VTE VTE Prophylaxis Ordered?: No (ambulatory. ) VS, I&O, 24H, Fishbone Vital Signs/I&O Vital Signs Date Time Temp Pulse Resp B/P Pulse Ox O2 Delivery O2 Flow Rate FiO2 05/12/16 06:44 97.2 97 18 133/93 Laboratory Data 24H LABS Laboratory Tests 2 05/12/16 06:39: [place] Level 0.49L Bertha Barrera May 12, 2016 11:18
[2016-05-12] MEDS ORDERED: LITHIUM CARBONATE 300 MG CAP PO ONE (12:30)
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
[2016-05-12] MEDS ORDERED: LORazepam 1 MG TAB PO PRN (16:00)
--- NOTE | 2016-05-12 17:08 | CR.PDOC ---
[facility] Consultation Consultation DATE OF CONSULTATION: 05/12/16 CONSULTATION REQUESTED BY: REASON FOR CONSULTATION: . RELEVANT HISTORY: . PAST PSYCHIATRIC HISTORY: PAST MEDICAL HISTORY: FAMILY HISTORY: Mother: Father: Siblings: Children: PERSONAL AND SOCIAL HISTORY: The patient was born and raised in [place]. 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 MENTAL STATUS EXAMINATION: Patient is a -year old male, who is [pleasant, cooperative, well kempt], [tall, overweight, thin, elderly, obese, frail build]. Speech is [pressured, tangential, circumstantial, flight of ideas, [normal in rate, volume, and articulation, and is coherent and spontaneous]. Language skills are . Thought processes including: [clear, Not goal-directed or Goal directed]. Thought content: [irrational, logical, illogical, tangential, paranoid]. Abstract reasoning, and computation: . Description of associations: [loose, tangential, circumstantial, intact]. Description of abnormal or psychotic thoughts: [hallucinations, delusions, preoccupation with violence, homicidal or suicidal ideation, and obsessions]. Judgment: [fair, good, very limited, poor,]. Insight: [very limited, good, fair. poor]. Orientation to [time, place and person]. Recent and remote memory: [Immediate, short-term and long-term memory is intact] . Attention span and concentration: [Poor, good, fair]. Language: [Normal]. Fund of knowledge: [adequate, intact, poor, fair, good]. Mood: [irrational, elated, irritable, distracted, depressed, anxious, restricted , neutral, fully communicative]. Affect: [appropriate, reactive, flat, constricted, animated, irrational, expansive, restricted, depressed, anxious, agitated, hypomania, lability]. DIAGNOSIS: 1. . PLAN: 1. . 2. . Vital Signs Vital Signs Date Time Temp Pulse Resp B/P Pulse Ox O2 Delivery O2 Flow Rate FiO2 05/12/16 14:10 16 Room Air 05/12/16 06:44 97.2 97 133/93 Laboratory Data 24H Labs Laboratory Tests 2 05/12/16 06:39: [place] Level 0.49L Home Medications Current Medications Current Medications Acetaminophen (Tylenol Tab) 650 mg Q6HP PRN PO HEADACHE or DISCOMFORT; Start at 21:30; Stop 06/02/16 at 21:29 Al Hydrox/Mg Hydrox/Simethicone (Mylanta) 30 ml Q4HP PRN PO HEARTBURN/ INDIGESTION; Start 05/03/16 at 21:30; Stop 06/02/16 at 21:29 Cephalexin Monohydrate (Keflex) 500 mg TID PO Last administered on 05/12/16 15 :35; Start 05/05/16 at 09:00; Stop 05/18/16 at 08:59 Diphenhydramine HCl (Benadryl) 50 mg 5XDP PRN IM AGITATION; Start 05/11/16 at 10:15; Stop 05/11/16 at 13:05; Status DC Diphenhydramine HCl (Benadryl) 50 mg Q4HP PRN PO AGITATION; Start 05/11/16 at 13:15; Stop 06/10/16 at 13:14 Gabapentin (Neurontin) 200 mg TID PO Last administered on 05/12/16 15:35; Start 05/03/16 at 21:00; Stop 06/02/16 at 20:59 Haloperidol (Haldol) 5 mg 5XD PRN IM AGITATION; Start 05/11/16 at 10:15; Stop 05/11/16 at 13:05; Status DC Haloperidol (Haldol) 5 mg Q4HP PRN PO AGITATION; Start 05/11/16 at 13:15; Stop 06/10/16 at 13:14 [place] Carbonate ([place] Carbonate) 300 mg BID PO Last administered on 08:07; Start 05/04/16 at 09:00; Stop 05/09/16 at 12:32; Status DC [place] Carbonate ([place] Carbonate) 300 mg TID PO Last administered on 08:15; Start 05/09/16 at 16:00; Stop 05/12/16 at 12:29; Status DC [place] Carbonate ([place] Carbonate) 600 mg BID PO ; Start 05/12/16 at 21:00; Stop 06/11/16 at 20:59 Lorazepam (Ativan) 1 mg Q4HP PRN PO ANXIETY/AGITATION Last administered on 05/12 16:09; Start 05/12/16 at 16:00; Stop 05/19/16 at 15:59 Lorazepam (Ativan) 2 mg Q4HP PRN PO ANXIETY/AGITATION Last administered on 05/12 10:41; Start 05/11/16 at 10:15; Stop 05/12/16 at 15:58; Status DC Magnesium Hydroxide (Milk Of Magnesia) 30 ml DAILYPRN PRN PO CONSTIPATION; Start 05/03/16 at 21:30; Stop 06/02/16 at 21:29 Meloxicam (Mobic) 15 mg DAILY PO Last administered on 05/12/16 08:15; Start at 09:00; Stop 06/03/16 at 08:59 Morphine Sulfate (Ms Contin) 15 mg Q8H PO Last administered on 05/12/16 14:10 ; Start 05/10/16 at 14:00; Stop 05/17/16 at 13:59 Morphine Sulfate (Ms Contin) 15 mg Q8HP PRN PO PAIN Last administered on 06:40; Start 05/03/16 at 21:15; Stop 05/10/16 at 09:36; Status DC Mupirocin (Bactroban 2% Cream) 1 dose BID TOP Last administered on 05/12/16 08 :15; Start 05/06/16 at 09:00; Stop 06/05/16 at 08:59 Nicotine (Nicorette) 2 mg Q4HP PRN PO NICOTINE WITHDRAWAL Last administered on 05/06/16 05:30; Start 05/04/16 at 13:30; Stop 05/06/16 at 12:42; Status DC Nicotine (Nicorette) 4 mg Q2HP PRN PO NICOTINE WITHDRAWAL Last administered on 05/12/16 16:09; Start 05/06/16 at 12:45; Stop 06/05/16 at 12:44 Oxcarbazepine (Trileptal) 300 mg BID PO Last administered on 05/12/16 08:12; Start 05/06/16 at 21:00; Stop 06/05/16 at 20:59 Pantoprazole Sodium (Protonix) 40 mg DAILY PO Last administered on 05/12/16 08 :15; Start 05/04/16 at 09:00; Stop 06/03/16 at 08:59 Trazodone HCl (Desyrel) 50 mg QHSP PRN PO INSOMNIA Last administered on t 23:15; Start 05/03/16 at 21:30; Stop 05/07/16 at 14:33; Status DC Scheduled Cephalexin Monohydrate (Cephalexin) 500 Mg Cap 500 MG PO TID infection Gabapentin (Gabapentin) 100 Mg Cap 200 MG PO TID [place] Carbonate ([place] Carbonate) 300 Mg Cap 300 MG PO BID (Reported) Meloxicam (Meloxicam) 15 Mg Tab 15 MG PO DAILY (Reported) Morphine Sulfate (Morphine Sulfate ER) 15 Mg Tabcr 15 MG PO Q12H Mupirocin (Mupirocin) 1 Dose/30 Gm Cream 1 DOSE TOP BID infection Pantoprazole Sodium (Pantoprazole Sodium) 40 Mg Tab 40 MG PO DAILY Scheduled PRN Nicotine Polacrilex (Nicorelief) 2 Mg Gum 4 MG PO Q2HP PRN PRN NICOTINE WITHDRAWAL Allergies Coded Allergies: Meperidine (Verified Allergy, Unknown, 05/27/12) Topiramate (Unverified Adverse Reaction, Intermediate, SHAKY, 05/02/16) Cherelle Sanchez May 12, 2016 17:08
[2016-05-12 18:00] VITALS: BP 131/71
[2016-05-13] MEDS: MORPHINE 15 MG SA TAB PO SCH ×3 (06:18→21:23)
[2016-05-13] MEDS: NICOTINE POLACRILEX 2 MG GUM PO PRN ×7 (06:27→22:36)
[2016-05-13 06:32] VITALS: BP 130/84
[2016-05-13] MEDS: PANTOPRAZOLE 40MG TAB (PROTONIX) PO SCH (08:35)
[2016-05-13] MEDS: GABAPENTIN 100 MG CAP PO SCH ×3 (08:36→20:18)
[2016-05-13] MEDS: MUPIROCIN 2% CREAM 30GM TOP SCH ×2 (08:36→20:19)
[2016-05-13] MEDS: MELOXICAM (MOBIC) 7.5 MG TAB PO SCH (08:36)
[2016-05-13] MEDS: CEPHALEXIN 500 MG CAP PO SCH ×3 (08:36→20:18)
[2016-05-13] MEDS: LITHIUM CARBONATE 300 MG CAP PO SCH ×2 (08:36→20:18)
[2016-05-13] MEDS: OXcarbazepine 300 MG TAB PO SCH ×2 (08:36→20:18)
[2016-05-13 18:00] VITALS: BP 136/86
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
[2016-05-14] MEDS: NICOTINE POLACRILEX 2 MG GUM PO PRN ×7 (04:30→21:47)
[2016-05-14] MEDS: MORPHINE 15 MG SA TAB PO SCH ×3 (05:54→21:48)
[2016-05-14 06:15] VITALS: BP 130/64
[2016-05-14] MEDS: OXcarbazepine 300 MG TAB PO SCH ×2 (08:17→20:18)
[2016-05-14] MEDS: GABAPENTIN 100 MG CAP PO SCH ×3 (08:17→20:18)
[2016-05-14] MEDS: MELOXICAM (MOBIC) 7.5 MG TAB PO SCH (08:17)
[2016-05-14] MEDS: PANTOPRAZOLE 40MG TAB (PROTONIX) PO SCH (08:17)
[2016-05-14] MEDS: CEPHALEXIN 500 MG CAP PO SCH ×3 (08:18→20:17)
[2016-05-14] MEDS: LITHIUM CARBONATE 300 MG CAP PO SCH ×2 (08:18→20:18)
[2016-05-14] MEDS: MUPIROCIN 2% CREAM 30GM TOP SCH ×2 (08:19→20:18)
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
[2016-05-14] MEDS ORDERED: hydrOXYzine 50 MG TAB PO PRN (18:15)
[2016-05-14 18:28] VITALS: BP 133/78
[2016-05-15] MEDS: NICOTINE POLACRILEX 2 MG GUM PO PRN ×2 (06:18→08:26)
[2016-05-15] MEDS: MORPHINE 15 MG SA TAB PO SCH ×2 (06:18→14:00)
[2016-05-15 06:37] VITALS: BP 118/74
[2016-05-15] MEDS: CEPHALEXIN 500 MG CAP PO SCH (08:23)
[2016-05-15] MEDS: MELOXICAM (MOBIC) 7.5 MG TAB PO SCH (08:23)
[2016-05-15] MEDS: OXcarbazepine 300 MG TAB PO SCH (08:23)
[2016-05-15] MEDS: PANTOPRAZOLE 40MG TAB (PROTONIX) PO SCH (08:23)
[2016-05-15] MEDS: LITHIUM CARBONATE 300 MG CAP PO SCH (08:23)
[2016-05-15] MEDS: GABAPENTIN 100 MG CAP PO SCH (08:24)
[2016-05-15] MEDS: MUPIROCIN 2% CREAM 30GM TOP SCH (08:26)
[2016-05-15] MEDS ORDERED: OXCA300T PO ×2 (10:21)
[2016-05-15] MEDS ORDERED: LITH300C PO (10:21)
[2016-05-15] MEDS ORDERED: GABA-279 PO (10:52)
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
== END 2016-05-15 13:05 | disposition home or self-care (01) | DRG 885 ==
LOC: M PSY 19:35
PROVIDERS: ADMIT Internal Medicine Addiction Medicine; ATTEND Psychiatry & Neurology Psychiatry
DX: F31.9 Bipolar disorder, unspecified (principal); F63.81 Intermittent explosive disorder; F19.90 Other psychoactive substance use, unspecified, uncomplicated; F17.210 Nicotine dependence, cigarettes, uncomplicated; M54.9 Dorsalgia, unspecified; Z88.8 Allergy status to other drugs, medicaments and biological substances; Z91.5 Personal history of self-harm; Z79.899 Other long term (current) drug therapy; S51.811A Laceration without foreign body of right forearm, initial encounter; X78.9XXA Intentional self-harm by unspecified sharp object, initial encounter; Y92.9 Unspecified place or not applicable; Y99.9 Unspecified external cause status; Y93.89 Activity, other specified; Z80.9 Family history of malignant neoplasm, unspecified; Z81.1 Family history of alcohol abuse and dependence; Z81.8 Family history of other mental and behavioral disorders

== ENCOUNTER 2017-05-13 19:15 | Inpatient (IN) | payer MEDICARE ==
[2017-05-13 21:53] LABS: HEMATOCRIT 44.7 % (42.0-52.0); HEMOGLOBIN 15.5 g/dl (14.0-18.0); MEAN CORPUSCULAR HEMOGLOBIN 29.4 pg (27.0-33.0); MEAN CORPUSCULAR HGB CONC 34.7 g/dl (32.0-36.5); MEAN CORPUSCULAR VOLUME 84.8 fl (80.0-96.0); PLATELET COUNT, AUTOMATED 212 10^3/uL (150-450); RED BLOOD COUNT 5.27 10^6/uL (4.30-6.10); RED CELL DISTRIBUTION WIDTH 13.1 % (11.5-14.5); WHITE BLOOD COUNT 11.2 10^3/uL (4.0-10.0)
[2017-05-13 22:18] LABS: AMPHETAMINES LEVEL URINE NEGATIVE (NEGATIVE); BARBITURATES URINE NEGATIVE (NEGATIVE); BENZODIAZEPINES URINE NEGATIVE (NEGATIVE); CANNABINOIDS URINE POSITIVE (NEGATIVE); COCAINE METABOLITE URINE NEGATIVE (NEGATIVE); METHADONE URINE NEGATIVE (NEGATIVE); OPIATES URINE NEGATIVE (NEGATIVE); PHENCYCLIDINE URINE NEGATIVE (NEGATIVE)
[2017-05-13 22:30] LABS: ACETAMINOPHEN LEVEL < 2.0 UG/ML (10.0-30.0); ALBUMIN 3.7 GM/DL (3.2-5.2); ALBUMIN/GLOBULIN RATIO 1.12 (1.00-1.93); ALKALINE PHOSPHATASE 97 U/L (45-117); ALT/SGPT 65 U/L (12-78); ANION GAP 8 MEQ/L (8-16); AST/SGOT 37 U/L (7-37); BILIRUBIN,DIRECT 0.1 MG/DL (0.0-0.2); BILIRUBIN,TOTAL 0.3 MG/DL (0.2-1.0); BLOOD UREA NITROGEN 13 MG/DL (7-18); CALCIUM LEVEL 8.7 MG/DL (8.5-10.1); CARBON DIOXIDE LEVEL 25 MEQ/L (21-32); CHLORIDE LEVEL 106 MEQ/L (98-107); CREATININE FOR GFR 0.74 MG/DL (0.70-1.30); GLOMERULAR FILTRATION RATE > 60.0 (>60); GLUCOSE, FASTING 87 MG/DL (70-100); POTASSIUM SERUM 4.1 MEQ/L (3.5-5.1); SODIUM LEVEL 139 MEQ/L (136-145)
[2017-05-13] MEDS: LIDOCAINE 1% MDV 20ML VIAL SC (22:37)
[2017-05-13 22:51] LABS: ETHYL ALCOHOL (ETHANOL) < 0.003 % (0.000-0.010)
[2017-05-13] MEDS ORDERED: traZODone 50 MG TAB PO (23:30)
[2017-05-13] MEDS ORDERED: MOM 30ML SUSPENSION UDC PO (23:30)
[2017-05-13] MEDS ORDERED: MAALOX 30 ML SUSP *UDC PO (23:30)
[2017-05-14] MEDS: ACETAMINOPHEN TAB 650MG DOSE (2X325MG) PO (07:57)
[2017-05-14] MEDS: risperiDONE 1 MG TAB PO (09:00)
[2017-05-14] MEDS: LORazepam 1 MG TAB PO ×3 (11:36→21:14)
[2017-05-14] MEDS: TOPIRAMATE (TopAMAX) 25 MG TAB PO (11:36)
[2017-05-14] MEDS: LITHIUM CARBONATE 150 MG CAP PO ×2 (11:36→21:14)
[2017-05-14] MEDS: NICOTINE POLACRILEX 2 MG GUM PO (12:28)
[2017-05-14] MEDS: OLANZapine 5 MG TAB PO (17:26)
[2017-05-14] MEDS: OXcarbazepine 300 MG TAB PO (21:13)
[2017-05-15] MEDS: OXcarbazepine 300 MG TAB PO ×2 (08:21→21:38)
[2017-05-15] MEDS: TOPIRAMATE (TopAMAX) 25 MG TAB PO (08:21)
[2017-05-15] MEDS: LORazepam 1 MG TAB PO ×3 (08:21→21:37)
[2017-05-15] MEDS: LITHIUM CARBONATE 150 MG CAP PO ×2 (08:21→21:37)
[2017-05-15] MEDS: NICOTINE POLACRILEX 2 MG GUM PO ×2 (08:22→14:49)
[2017-05-15] MEDS: hydrOXYzine 50 MG TAB PO (17:01)
[2017-05-15] MEDS: MUPIROCIN 2% OINT 22 GM TUBE TOP (22:08)
[2017-05-16 07:05] LABS: LITHIUM LEVEL 0.35 MEQ/L (0.60-1.20)
[2017-05-16] MEDS: OXcarbazepine 300 MG TAB PO ×2 (08:12→21:51)
[2017-05-16] MEDS: LITHIUM CARBONATE 150 MG CAP PO ×2 (08:12→21:51)
[2017-05-16] MEDS: LORazepam 1 MG TAB PO ×3 (08:12→21:51)
[2017-05-16] MEDS: TOPIRAMATE (TopAMAX) 25 MG TAB PO (08:12)
[2017-05-16] MEDS: NICOTINE POLACRILEX 2 MG GUM PO ×2 (08:14→13:10)
[2017-05-16] MEDS: hydrOXYzine 50 MG TAB PO (12:14)
[2017-05-16] MEDS ORDERED: OLANZapine 5 MG TAB PO (13:00)
[2017-05-16] MEDS: chlorproMAZINE 25 MG TAB (Q0161) PO (14:24)
[2017-05-17] MEDS: LORazepam 1 MG TAB PO ×3 (08:35→20:10)
[2017-05-17] MEDS: LITHIUM CARBONATE 150 MG CAP PO ×2 (08:35→20:11)
[2017-05-17] MEDS: OXcarbazepine 300 MG TAB PO ×2 (08:35→20:10)
[2017-05-17] MEDS: TOPIRAMATE (TopAMAX) 25 MG TAB PO (08:35)
[2017-05-17] MEDS: MUPIROCIN 2% OINT 22 GM TUBE TOP (08:36)
[2017-05-17] MEDS: NICOTINE POLACRILEX 2 MG GUM PO ×3 (10:22→20:58)
[2017-05-17] MEDS: hydrOXYzine 50 MG TAB PO ×2 (12:00→20:10)
[2017-05-17] MEDS: chlorproMAZINE 25 MG TAB (Q0161) PO ×3 (12:51→22:43)
[2017-05-18] MEDS: OXcarbazepine 300 MG TAB PO ×2 (08:30→21:41)
[2017-05-18] MEDS: TOPIRAMATE (TopAMAX) 25 MG TAB PO (08:30)
[2017-05-18] MEDS: LORazepam 1 MG TAB PO ×3 (08:31→21:41)
[2017-05-18] MEDS: LITHIUM CARBONATE 150 MG CAP PO (08:31)
[2017-05-18] MEDS: NICOTINE POLACRILEX 2 MG GUM PO ×2 (08:33→16:23)
[2017-05-18 09:25] LABS: LITHIUM LEVEL 0.27 MEQ/L (0.60-1.20)
[2017-05-18] MEDS: HALOPERIDOL 10 MG TAB PO (13:18)
[2017-05-18] MEDS: diphenhydrAMINE 50 MG CAP PO (13:18)
[2017-05-18] MEDS: LITHIUM CARBONATE 600 MG CAP PO (21:41)
[2017-05-18] MEDS: chlorproMAZINE 25 MG TAB (Q0161) PO (21:48)
[2017-05-19] MEDS: TOPIRAMATE (TopAMAX) 25 MG TAB PO (08:32)
[2017-05-19] MEDS: OXcarbazepine 300 MG TAB PO ×2 (08:32→20:57)
[2017-05-19] MEDS: LITHIUM CARBONATE 600 MG CAP PO ×2 (08:32→20:57)
[2017-05-19] MEDS: NICOTINE POLACRILEX 2 MG GUM PO ×4 (08:37→19:14)
[2017-05-19] MEDS: LORazepam 1 MG TAB PO ×3 (09:00→20:57)
[2017-05-19] MEDS: ACETAMINOPHEN TAB 650MG DOSE (2X325MG) PO (10:13)
[2017-05-19] MEDS ORDERED: IBUPROFEN 600 MG TAB PO (10:30)
[2017-05-19] MEDS: hydrOXYzine 50 MG TAB PO (19:14)
[2017-05-19] MEDS: MUPIROCIN 2% OINT 22 GM TUBE TOP (22:23)
[2017-05-20] MEDS: NICOTINE POLACRILEX 2 MG GUM PO ×2 (06:39→08:22)
[2017-05-20] MEDS: LORazepam 1 MG TAB PO (08:22)
[2017-05-20] MEDS: MUPIROCIN 2% OINT 22 GM TUBE TOP (08:22)
[2017-05-20] MEDS: TOPIRAMATE (TopAMAX) 25 MG TAB PO (08:22)
[2017-05-20] MEDS: OXcarbazepine 300 MG TAB PO (08:22)
[2017-05-20] MEDS: LITHIUM CARBONATE 600 MG CAP PO (08:22)
== END 2017-05-20 12:35 | disposition home or self-care (01) | DRG 885 ==
LOC: M PSY 05-14 00:09 → M ED 19:15 → M ED INP 23:21
DX: F31.9 Bipolar disorder, unspecified (principal); F43.10 Post-traumatic stress disorder, unspecified; F60.2 Antisocial personality disorder; Z88.8 Allergy status to other drugs, medicaments and biological substances; M54.5 Low back pain; G89.29 Other chronic pain; F17.200 Nicotine dependence, unspecified, uncomplicated; D72.829 Elevated white blood cell count, unspecified

== ENCOUNTER 2017-12-03 08:36 | Emergency (ER) | payer MEDICARE ==
[2017-12-03] MEDS: LORazepam 2 MG TAB PO ×2 (10:18→17:06)
== END 2017-12-03 19:26 ==
LOC: M ED 08:36
DX: R45.851 Suicidal ideations (principal); S61.512A Laceration without foreign body of left wrist, initial encounter; X78.9XXA Intentional self-harm by unspecified sharp object, initial encounter; Y92.89 Other specified places as the place of occurrence of the external cause; F33.9 Major depressive disorder, recurrent, unspecified; Z91.5 Personal history of self-harm; Z79.899 Other long term (current) drug therapy; Z88.8 Allergy status to other drugs, medicaments and biological substances; F17.210 Nicotine dependence, cigarettes, uncomplicated; F12.20 Cannabis dependence, uncomplicated
CPT/HCPCS: 99285

== ENCOUNTER 2017-12-10 17:40 | Inpatient (IN) | payer MEDICARE, MEDICAID ==
[2017-12-10 18:54] LABS: HEMATOCRIT 45.6 % (42.0-52.0); HEMOGLOBIN 15.6 g/dl (13.5-17.5); MEAN CORPUSCULAR HEMOGLOBIN 29.3 pg (27.0-33.0); MEAN CORPUSCULAR HGB CONC 34.2 g/dl (32.0-36.5); MEAN CORPUSCULAR VOLUME 85.7 fl (80.0-96.0); PLATELET COUNT, AUTOMATED 234 10^3/uL (150-450); RED BLOOD COUNT 5.32 10^6/uL (4.30-6.10); WHITE BLOOD COUNT 10.9 10^3/uL (4.0-10.0)
[2017-12-10 19:34] LABS: ACETAMINOPHEN LEVEL < 2.0 UG/ML (10.0-30.0); ALBUMIN/GLOBULIN RATIO 1.18 (1.00-1.93); ALKALINE PHOSPHATASE 114 U/L (45-117); ALT/SGPT 41 U/L (12-78); ANION GAP 7 MEQ/L (8-16); AST/SGOT 23 U/L (7-37); BILIRUBIN,DIRECT < 0.1 MG/DL (0.0-0.2); BILIRUBIN,TOTAL 0.2 MG/DL (0.2-1.0); BLOOD UREA NITROGEN 13 MG/DL (7-18); CALCIUM LEVEL 8.8 MG/DL (8.5-10.1); CARBON DIOXIDE LEVEL 28 MEQ/L (21-32); CHLORIDE LEVEL 104 MEQ/L (98-107); CREATININE FOR GFR 0.86 MG/DL (0.70-1.30); ETHYL ALCOHOL (ETHANOL) 0.007 % (0.000-0.010); GLOMERULAR FILTRATION RATE > 60.0 (>60); GLUCOSE, FASTING 89 MG/DL (70-100); POTASSIUM SERUM 4.4 MEQ/L (3.5-5.1); SODIUM LEVEL 139 MEQ/L (136-145); TOTAL PROTEIN 7.4 GM/DL (6.4-8.2)
[2017-12-10 19:39] LABS: AMPHETAMINES LEVEL URINE NEGATIVE (NEGATIVE); BARBITURATES URINE NEGATIVE (NEGATIVE); BENZODIAZEPINES URINE NEGATIVE (NEGATIVE); CANNABINOIDS URINE POSITIVE (NEGATIVE); COCAINE METABOLITE URINE NEGATIVE (NEGATIVE); METHADONE URINE NEGATIVE (NEGATIVE); OPIATES URINE NEGATIVE (NEGATIVE); PHENCYCLIDINE URINE NEGATIVE (NEGATIVE)
[2017-12-10] MEDS: LORazepam 2 MG TAB PO (20:43)
[2017-12-10 21:29] LABS: LITHIUM LEVEL 0.31 MEQ/L (0.60-1.20)
[2017-12-10] MEDS ORDERED: traZODone 50 MG TAB PO (22:15)
[2017-12-10] MEDS ORDERED: MOM 30ML SUSPENSION UDC PO (22:15)
[2017-12-10] MEDS ORDERED: MAALOX 30 ML SUSP *UDC PO (22:15)
[2017-12-10] MEDS ORDERED: ALBUTEROL 90 MCG/ACT 8GM HFA INHALER INH (23:15)
[2017-12-11] MEDS: OLANZapine ORAL DISINTEGRATING TAB 5MG PO ×3 (00:53→19:58)
[2017-12-11] MEDS: MIRTAZAPINE 15 MG TAB PO ×2 (01:02→21:31)
[2017-12-11] MEDS: PERPHENAZINE 2 MG TAB PO ×3 (09:14→21:31)
[2017-12-11] MEDS: LITHIUM CARBONATE 450 MG **CR** TAB PO ×2 (09:14→21:31)
[2017-12-11] MEDS: CLOTRIMAZOLE 1% TOPICAL CREAM 30GM TOP ×2 (11:13→21:33)
[2017-12-11] MEDS ORDERED: OLANZapine ORAL DISINTEGRATING TAB 5MG PO (11:15)
[2017-12-11] MEDS: MUPIROCIN 2% OINT 22 GM TUBE TOP ×2 (11:16→21:32)
[2017-12-11] MEDS ORDERED: MIRTAZAPINE 15 MG TAB PO (21:00)
[2017-12-12] MEDS: OLANZapine ORAL DISINTEGRATING TAB 5MG PO (06:52)
[2017-12-12 06:54] LABS: HEMATOCRIT 40.3 % (42.0-52.0); HEMOGLOBIN 13.7 g/dl (13.5-17.5); MEAN CORPUSCULAR HEMOGLOBIN 29.2 pg (27.0-33.0); MEAN CORPUSCULAR VOLUME 85.9 fl (80.0-96.0); PLATELET COUNT, AUTOMATED 198 10^3/uL (150-450); RED BLOOD COUNT 4.69 10^6/uL (4.30-6.10); RED CELL DISTRIBUTION WIDTH 13.1 % (11.5-14.5); WHITE BLOOD COUNT 6.8 10^3/uL (4.0-10.0)
[2017-12-12] MEDS: CLOTRIMAZOLE 1% TOPICAL CREAM 30GM TOP ×2 (08:18→21:20)
[2017-12-12] MEDS: PERPHENAZINE 2 MG TAB PO ×2 (08:18→15:20)
[2017-12-12] MEDS: LITHIUM CARBONATE 450 MG **CR** TAB PO ×2 (08:18→21:20)
[2017-12-12] MEDS: MUPIROCIN 2% OINT 22 GM TUBE TOP ×2 (08:19→21:21)
[2017-12-12] MEDS: HALOPERIDOL 5 MG TAB PO ×3 (10:10→22:03)
[2017-12-12] MEDS: diphenhydrAMINE 50 MG CAP PO ×2 (10:10→21:20)
[2017-12-12] MEDS: BENZTROPINE 2 MG TAB PO (10:10)
[2017-12-12] MEDS: ACETAMINOPHEN TAB 650MG DOSE (2X325MG) PO (15:20)
[2017-12-12] MEDS: NICOTINE POLACRILEX 2 MG GUM PO ×2 (17:04→21:21)
[2017-12-12] MEDS: MIRTAZAPINE 15 MG TAB PO (21:20)
[2017-12-13] MEDS: MUPIROCIN 2% OINT 22 GM TUBE TOP ×2 (08:19→21:24)
[2017-12-13] MEDS: CLOTRIMAZOLE 1% TOPICAL CREAM 30GM TOP ×2 (08:20→20:02)
[2017-12-13] MEDS: LITHIUM CARBONATE 450 MG **CR** TAB PO ×2 (08:20→20:02)
[2017-12-13] MEDS: NICOTINE POLACRILEX 2 MG GUM PO ×2 (08:21→18:12)
[2017-12-13] MEDS: HALOPERIDOL 5 MG TAB PO ×2 (09:59→20:02)
[2017-12-13] MEDS: diphenhydrAMINE 50 MG CAP PO (09:59)
[2017-12-13] MEDS: MIRTAZAPINE 15 MG TAB PO (20:02)
[2017-12-14] MEDS: LITHIUM CARBONATE 450 MG **CR** TAB PO (08:38)
[2017-12-14] MEDS: MUPIROCIN 2% OINT 22 GM TUBE TOP (08:38)
[2017-12-14] MEDS: CLOTRIMAZOLE 1% TOPICAL CREAM 30GM TOP (08:41)
[2017-12-14] MEDS: NICOTINE POLACRILEX 2 MG GUM PO (09:40)
[2017-12-14] MEDS: HALOPERIDOL 5 MG TAB PO (11:08)
== END 2017-12-14 13:30 | disposition home or self-care (01) | DRG 885 ==
LOC: M ED 17:40 → M ED INP 22:10 → M PSY 23:54
PROVIDERS: Psychiatry & Neurology Psychiatry
DX: F31.9 Bipolar disorder, unspecified (principal); F43.10 Post-traumatic stress disorder, unspecified; F44.9 Dissociative and conversion disorder, unspecified; F60.2 Antisocial personality disorder; F12.10 Cannabis abuse, uncomplicated; Z88.8 Allergy status to other drugs, medicaments and biological substances; Z91.5 Personal history of self-harm; F17.210 Nicotine dependence, cigarettes, uncomplicated; M54.9 Dorsalgia, unspecified; M79.669 Pain in unspecified lower leg; S51.819A Laceration without foreign body of unspecified forearm, initial encounter; D72.829 Elevated white blood cell count, unspecified; B35.8 Other dermatophytoses; X78.1XXA Intentional self-harm by knife, initial encounter; Y92.9 Unspecified place or not applicable; Y93.89 Activity, other specified; Z79.899 Other long term (current) drug therapy

== ENCOUNTER 2018-06-22 14:36 | Emergency (ER) | payer MEDICARE, MEDICAID ==
[~2018-06-22] VITALS: Ht 170.2 cm; Wt 104.5 kg
[~2018-06-22 14:36] MED LIST changes: +ATIV1TAB7 PO; +CEPH500C PO; +CHLOR25TA PO; +FLUP5TA PO; +GABA-1171 PO; -GABA-279 PO; +LITH45TASA PO; +LITH600C PO; +MELO15TA28 PO; -MELO15TA4 PO; +MIRT15TA3 PO; +MUPI2OI TOP; +MUPI30CR TOP; +NICO2GUM62 PO; +OXCA300T14 PO; -PANT40TA2 PO; +PANT40TA3 PO; +PERP8TAB25 PO; +REME15TA PO; +TOPA100T12 PO; -TOPA100T8 PO; +TOPA1TAB PO; +TRAZO50TA PO; +VENTAER INH
[2018-06-22 15:38] LABS: BASO # 0.1 10^3/uL (0.0-0.2); BASO % 0.8 % (0.0-1.0); EOS # 0.3 10^3/uL (0.0-0.50); EOS % 2.8 % (0.0-3.0); HEMATOCRIT 46.7 % (42.0-52.0); HEMOGLOBIN 16.2 g/dl (13.5-17.5); LYMPH # 3.5 10^3/uL (1.5-4.5); MEAN CORPUSCULAR HEMOGLOBIN 29.2 pg (27.0-33.0); MEAN CORPUSCULAR HGB CONC 34.7 g/dl (32.0-36.5); MEAN CORPUSCULAR VOLUME 84.3 fl (80.0-96.0); MONO # 0.9 10^3/uL (0.0-0.8); MONO % 7.8 % (0.0-5.0); NEUTROPHILS # 6.5 10^3/uL (1.8-7.7); NEUTROPHILS % 57.4 % (36.0-66.0); PLATELET COUNT, AUTOMATED 254 10^3/uL (150-450); RED BLOOD COUNT 5.54 10^6/uL (4.30-6.10); WHITE BLOOD COUNT 11.3 10^3/uL (4.0-10.0)
[2018-06-22 15:58] LABS: ALBUMIN 4.1 GM/DL (3.2-5.2); ALT/SGPT 44 U/L (12-78); BILIRUBIN,DIRECT 0.1 MG/DL (0.0-0.2); BILIRUBIN,TOTAL 0.8 MG/DL (0.2-1.0); BLOOD UREA NITROGEN 14 MG/DL (7-18); CALCIUM LEVEL 8.9 MG/DL (8.5-10.1); CARBON DIOXIDE LEVEL 24 MEQ/L (21-32); CHLORIDE LEVEL 105 MEQ/L (98-107); GLOMERULAR FILTRATION RATE > 60.0 (>60); GLUCOSE, FASTING 94 MG/DL (70-100); LIPASE 221 U/L (73-393); POTASSIUM SERUM 4.1 MEQ/L (3.5-5.1); SODIUM LEVEL 136 MEQ/L (136-145); TOTAL PROTEIN 7.7 GM/DL (6.4-8.2)
[2018-06-22] MEDS ORDERED: NS 1,000 ML IV ONE (16:00)
[2018-06-22] MEDS ORDERED: ONDANSETRON 4MG/2ML VIAL (J2405) IV ONE (16:00)
[2018-06-22] MEDS ORDERED: MORPHINE 4 MG/ML 1ML VIAL/SYRINGE (J2270) IV ONE (16:00)
[2018-06-22] MEDS ORDERED: ISOVUE-370 76% 100ML VIAL (Q9967) As Ordered ONE (16:34)
--- NOTE | 2018-06-22 17:32 | REP ---
CT ABDOMEN AND PELVIS WITH IV CONTRAST: TECHNIQUE: Axial contrast enhanced images from the lung bases to the pubic symphysis using 100 mL Isovue 370 intravenous contrast material with multiplanar reformations. Visualized lung bases demonstrate a 7 mm nodular opacity on the most superior image in the right lower lobe, not seen on the prior CT of 11/26/[address]. Recommend CT of the chest to evaluate for other possible nodules. The liver demonstrates diffuse fatty infiltration. Gallbladder is grossly unremarkable. Spleen, adrenals, pancreas and kidneys are unremarkable. There is no hydronephrosis. There is no abdominal aortic aneurysm. There is no adenopathy. There is no free air or free fluid. There is thickening of the sigmoid colon with multiple sigmoid diverticula present and surrounding streaky inflammatory change in the fat compatible with diverticulitis. A round focus of fat with rim calcifications just above the bladder appears to represent a focus of fat necrosis. The urinary bladder itself is grossly unremarkable. IMPRESSION: Findings of sigmoid diverticulitis. No free air, free fluid or abscess. 7 mm nodular density in the right lower lobe. Recommend CT of the chest to evaluate for other possible nodules. Electronically Signed by Andrew Lui MD 06/23/2018 04:49 P
[2018-06-22] MEDS ORDERED: FLAG500T PO (17:39)
[2018-06-22] MEDS ORDERED: ONDA4TAB6 PO (17:39)
[2018-06-22] MEDS ORDERED: CIPR-249 PO (17:39)
[2018-06-22] MEDS ORDERED: PERC5TAB12 PO (17:39)
[2018-06-22] MEDS ORDERED: metroNIDAZOLE (FLAGYL) 500 MG TAB PO ONE (17:45)
[2018-06-22] MEDS ORDERED: CIPROFLOXACIN 500 MG TAB PO ONE (17:45)
[2018-06-22 17:48] VITALS: BP 130/78
--- NOTE | 2018-06-24 06:40 | ED PDOC ---
Post-Departure Follow-Up dr [email or web address] faxed formal report of ct abd/p for fu Milla Crain MD June 24, 2018 06:40
== END 2018-06-22 16:26 | disposition home or self-care (01) ==
LOC: M ED 14:36
DX: K57.32 Diverticulitis of large intestine without perforation or abscess without bleeding (principal); R11.0 Nausea; F17.210 Nicotine dependence, cigarettes, uncomplicated; Z88.8 Allergy status to other drugs, medicaments and biological substances
CPT/HCPCS: 74177; 80048; 80076; 83690; 85025; 96361; 96374; 96375; 99284; J2270; J2405; Q9967

== ENCOUNTER → 2018-08-13 | Outpatient (REF) | payer MEDICARE, MEDICAID ==
[~2018-08-13] MED LIST changes: +CIPR-249 PO; +FLAG500T PO; +ONDA4TAB6 PO; +PERC5TAB12 PO; +TRAZ1TAB10 PO; -TRAZO50TA PO
== END ==
LOC: M LAB LCGH 11:43
PROVIDERS: ATTEND Surgery
DX: K21.9 Gastro-esophageal reflux disease without esophagitis (principal)

== ENCOUNTER → 2018-11-05 | Outpatient (REF) ==
[~2018-11-05] MED LIST changes: -MORP-38 PO; +MORP-69 PO; +NICO2GUM52 PO; -NICO2GUM62 PO
== END ==
LOC: M LAB LCGH 11:15
PROVIDERS: ATTEND Surgery
DX: Z00.00 Encounter for general adult medical examination without abnormal findings (principal)

== ENCOUNTER → 2021-06-24 | Outpatient (CLI) | payer MEDICARE, MEDICAID ==
[~2021-06-24] MED LIST changes: -FLUP5TA PO; +FLUP5TAB13 PO; +MIRT-62 PO; +NICO-13 PO; -NICO2GUM52 PO; +PANT40TA29 PO; -PANT40TA3 PO; -REME15TA PO
== END ==
LOC: M RAD 15:43
PROVIDERS: ATTEND Otolaryngology
DX: R22.1 Localized swelling, mass and lump, neck (principal); J33.8 Other polyp of sinus

== ENCOUNTER 2022-06-24 07:55 | Day surgery (SDC) | payer MEDICARE, MEDICAID ==
[~2022-06-24] VITALS: Ht 170.2 cm; Wt 109.8 kg
[~2022-06-24 07:55] MED LIST changes: +ARIP1TAB4 PO; +HEPARIN SOD (PORCINE) 5000UNITS/ML 1ML VIAL/SYRINGE SQ ONE; +ROSU10TA6 PO; +ceFAZolin SOD 2 GM in IV 1 EA IV ONE
[2022-06-24] MEDS ORDERED: LR 1,000 ML IV SCH ×2 (08:25→11:55)
[2022-06-24] MEDS ORDERED: LIDOCAINE 1% SDV 5ML VIAL SC PRN (08:25)
[2022-06-24] MEDS ORDERED: LIDOCAINE 2% 100MG/5ML SDV (FOR ANES.) As Ordered ONE (08:48)
[2022-06-24] MEDS ORDERED: propofoL 200 MG/20 ML VIAL As Ordered ONE ×3 (08:48→10:54)
[2022-06-24] MEDS ORDERED: fentaNYL 100 MCG/2 ML INJECTION As Ordered ONE (08:48)
[2022-06-24] MEDS ORDERED: MIDAZOLAM INJ 2MG/2ML VIAL As Ordered ONE (08:48)
[2022-06-24] MEDS ORDERED: BUPIVACAINE HCL 0.25% 10ML VIAL As Ordered ONE (09:47)
[2022-06-24] MEDS ORDERED: LIDOCAINE 1% MDV 20ML VIAL As Ordered ONE (09:47)
[2022-06-24] MEDS ORDERED: BUPIVACAINE LIPOSOME/PF 1.3% 20ML VIAL (13.3MG/ML)(EXPAREL) As Ordered ONE (09:48)
[2022-06-24] MEDS ORDERED: ONDANSETRON 4MG 2ML VIAL As Ordered ONE (10:31)
[2022-06-24] MEDS ORDERED: ACETAMINOPHEN 1000MG 100ML IV BAG As Ordered ONE (10:35)
[2022-06-24] MEDS ORDERED: KETAMINE HCL 200MG/20ML VIAL As Ordered ONE (10:55)
[2022-06-24] MEDS ORDERED: ePHEDrine SULFATE 25 MG/5 ML(5MG/ML) SYRINGE As Ordered ONE (11:23)
[2022-06-24] MEDS ORDERED: ONDANSETRON 4MG 2ML VIAL IV PRN (11:55)
[2022-06-24] MEDS ORDERED: oxyCODONE 5MG TAB PO PRN (11:55)
[2022-06-24] MEDS ORDERED: fentaNYL 100 MCG/2 ML INJECTION IV PRN (11:55)
[2022-06-24 13:54] VITALS: BP 132/78
== END 2022-06-24 13:50 | disposition home or self-care (01) ==
LOC: M SDC 07:55
PROVIDERS: ATTEND Surgery
DX: N60.22 Fibroadenosis of left breast (principal); K57.92 Diverticulitis of intestine, part unspecified, without perforation or abscess without bleeding; N64.4 Mastodynia; R91.1 Solitary pulmonary nodule; F17.210 Nicotine dependence, cigarettes, uncomplicated; F12.10 Cannabis abuse, uncomplicated; Z78.9 Other specified health status; F19.11 Other psychoactive substance abuse, in remission; E78.00 Pure hypercholesterolemia, unspecified; Z88.8 Allergy status to other drugs, medicaments and biological substances
CPT/HCPCS: 19101; 19281; 36415; 76942; 86850; 86900; 86901; 88307; A4648; C9290; J0131; J0690; J1100; J2250; J2405; J3010

== ENCOUNTER → 2022-10-13 | Outpatient (CLI) | payer MEDICARE, MEDICAID ==
[~2022-10-13] MED LIST changes: -HEPARIN SOD (PORCINE) 5000UNITS/ML 1ML VIAL/SYRINGE SQ ONE; -ceFAZolin SOD 2 GM in IV 1 EA IV ONE
[2022-10-13 18:11] LABS: ALBUMIN 3.8 G/DL (3.2-5.2); ALKALINE PHOSPHATASE 111 U/L (46-116); ALT/SGPT 17 U/L (7.0-40); AST/SGOT < 8 U/L (<34); BILIRUBIN,TOTAL 0.3 MG/DL (0.3-1.2); BLOOD UREA NITROGEN 11 MG/DL (9-23); CALCIUM LEVEL 8.9 MG/DL (8.5-10.1); CARBON DIOXIDE LEVEL 29 MMOL/L (20-31); CHLORIDE LEVEL 105 MMOL/L (98-107); CREATININE FOR GFR 0.86 MG/DL (0.70-1.30); GLOMERULAR FILTRATION RATE > 60.0 (>60); GLUCOSE, FASTING 67 MG/DL (60-100); HCG, SERUM QUANTITATIVE < 2.6 MIU/ML; POTASSIUM SERUM 4.2 MMOL/L (3.5-5.1); SODIUM LEVEL 139 MMOL/L (136-145); TOTAL PROTEIN 6.7 G/DL (5.7-8.2)
[2022-10-13 18:12] LABS: FREE T4 0.96 NG/DL (0.89-1.76); THYROID STIMULATING HORMONE 1.221 uIU/ML (0.55-4.78)
[2022-10-13 18:13] LABS: LUTEINIZING HORMONE 3.3 mIU/ML (1.5-9.3)
== END ==
LOC: M PLALAB 16:02
PROVIDERS: ATTEND Surgery
DX: N64.4 Mastodynia (principal); Z79.899 Other long term (current) drug therapy

== ENCOUNTER → 2022-10-23 | Outpatient (CLI) | payer MEDICARE | LOC: M WHC 08:17 | PROVIDERS: ATTEND Surgery | DX: N61.1 Abscess of the breast and nipple (principal); N64.4 Mastodynia | CPT/HCPCS: 76642; 77065; G0279 ==

== ENCOUNTER → 2023-03-10 | Outpatient (CLI) | payer MEDICARE, MEDICAID ==
[~2023-03-10] MED LIST changes: -MIRT-62 PO; +MIRT-88 PO
== END ==
LOC: M WHC 08:01
PROVIDERS: ATTEND Nurse Practitioner Women's Health
DX: R92.8 Other abnormal and inconclusive findings on diagnostic imaging of breast (principal)